=== PATIENT | female | born 1935 | race Two or more races ===

== ENCOUNTER 2020-11-17 12:29 | Inpatient (IN) | payer OTHER ==
[~2020-11-17] VITALS: Ht 147.3 cm; Wt 65.8 kg
[~2020-11-17 12:29] MED LIST: BENZ100C97 PO; CETI-41 PO; DOXY150C2 PO
[2020-11-17 13:58] LABS: Basophils # (auto) 0.1 10 ^3/uL (0-0.2); Basophils % (auto) 0.8 % (0.0-2.0); Eosinophils # (auto) 0.2 10 ^3/uL (0-0.8); Hematocrit 34.7 % (36.0-46.0); Hemoglobin 11.7 g/dL (12.2-16.2); Lymphocytes % (auto) 8.4 % (10.0-50.0); Mean Corpuscular Hemoglobin 30.8 pg (28.0-32.0); Mean Corpuscular Hgb Conc. 33.6 g/dL (32.0-36.0); Mean Corpuscular Volume 91.9 fL (80.0-100.0); Monocytes # (auto) 0.6 10 ^3/uL (0-1.3); Monocytes % (auto) 5.2 % (0.0-12.0); Neutrophils % (auto) 83.6 % (37.0-80.0); Platelet Count (auto) 230 10^3/uL (140-450); Red Blood Cells 3.78 10^6/uL (4.0-5.20); Red Cell Distribution Width 14.6 % (11.8-14.3); White Blood Cell 11.9 10^3/uL (4.4-10.8)
[2020-11-17 14:20] LABS: Calcium 8.4 mg/dL (8.5-10.1); INR 1.02 (0.9-1.15); Partial Thromboplastin Time 25.4 sec (23.0-31.2); Potassium 3.9 mmol/L (3.5-5.1)
[2020-11-17 14:27] LABS: BUN/Creatinine Ratio 21.3; Bilirubin, Total 0.4 mg/dL (0.2-1.0); Total Protein 6.9 g/dL (6.4-8.2)
[2020-11-17] MEDS ORDERED: ONDANSETRON HCL 4 MG/2 ML VIAL IV ONE (16:30)
[2020-11-17] MEDS ORDERED: MORPHINE SULFATE 4 MG/ML SYR/VIAL IV ONE (16:30)
[2020-11-17] MEDS ORDERED: NITROGLYCERIN 0.4 MG SL TAB SL PRN ×2 (17:30→23:45)
[2020-11-17] MEDS ORDERED: MORPHINE SULF INJ 2 MG/ML SYRINGE 1ML IV PRN ×3 (17:30→23:45)
[2020-11-17] MEDS ORDERED: ONDANSETRON HCL 4 MG/2 ML VIAL IV PRN ×2 (23:45)
[2020-11-17] MEDS ORDERED: DOCUSATE SOD 100 MG CAP PO PRN (23:45)
[2020-11-17] MEDS ORDERED: LORazepam 0.5 MG TAB PO PRN (23:45)
[2020-11-17] MEDS ORDERED: ALUM & MAG HYDROX-SIMETH LIQ(MAALOX) 30 ML PO PRN (23:45)
[2020-11-17] MEDS ORDERED: ALUM & MAG HYDROX-SIMETH LIQ(MAALOX) 30 ML PO ONE (23:45)
[2020-11-18] MEDS: DOXYCYCLINE 100MG/250ML 250 ML IV SCH ×3 (00:09→23:45)
[2020-11-18] MEDS: SODIUM CHLORIDE 0.9% 1,000 ML IV SCH ×2 (00:14→13:29)
[2020-11-18] MEDS: HYDROcodone-ACET 5/325MG TAB PO PRN ×3 (03:16→10:54)
[2020-11-18 04:29] VITALS: BP 119/71
[2020-11-18 08:00] VITALS: BP 153/63
[2020-11-18 08:22] LABS: Basophils # (auto) 0.1 10 ^3/uL (0-0.2); Basophils % (auto) 0.5 % (0.0-2.0); Eosinophils # (auto) 0 10 ^3/uL (0-0.8); Eosinophils % (auto) 0.1 % (0.0-7.0); Hematocrit 27.8 % (36.0-46.0); Hemoglobin 9.5 g/dL (12.2-16.2); Lymphocytes # (auto) 1.5 10 ^3/uL (0.4-5.4); Lymphocytes % (auto) 12.4 % (10.0-50.0); Mean Corpuscular Hemoglobin 31.5 pg (28.0-32.0); Mean Corpuscular Volume 92.7 fL (80.0-100.0); Monocytes % (auto) 8.5 % (0.0-12.0); Neutrophils # (auto) 9.4 10 ^3/uL (1.6-8.6); Neutrophils % (auto) 78.5 % (37.0-80.0); Platelet Count (auto) 188 10^3/uL (140-450); Red Cell Distribution Width 14.8 % (11.8-14.3)
[2020-11-18 08:30] LABS: Potassium 3.7 mmol/L (3.5-5.1)
[2020-11-18 08:35] LABS: Albumin 2.7 g/dL (3.4-5.0); BUN/Creatinine Ratio 21.7; Bilirubin, Total 0.5 mg/dL (0.2-1.0); Calcium 7.7 mg/dL (8.5-10.1); Magnesium 2.3 mg/dL (1.6-2.6); Phosphorus 4.2 mg/dL (2.5-4.90); Total Protein 6.2 g/dL (6.4-8.2)
[2020-11-18] MEDS: DOCUSATE SOD 100 MG CAP PO SCH (10:54)
[2020-11-18] MEDS: ASPirin-EC 81 mg tab PO SCH (10:54)
[2020-11-18] MEDS: CARVEDILOL 3.125 MG TAB PO SCH ×2 (10:55→21:45)
[2020-11-18 11:58] LABS: INR 1.03 (0.9-1.15); Partial Thromboplastin Time 25.3 sec (23.0-31.2)
[2020-11-18] MEDS ORDERED: LATA0.0020 EACHEYE (14:29)
[2020-11-18] MEDS ORDERED: ATOR20TA50 PO (14:29)
[2020-11-18] MEDS ORDERED: IPRA0.03 (14:29)
[2020-11-18] MEDS ORDERED: BRIM0.159 OP (14:29)
[2020-11-18] MEDS ORDERED: ASPI-498 OR (14:29)
[2020-11-18 16:00] VITALS: BP 110/88
[2020-11-18] MEDS ORDERED: ENOXAPARIN SOD 30 MG/0.3 ML SYRINGE SC ONE (16:15)
[2020-11-18] MEDS: ATORVASTATIN 20 MG TAB PO SCH (22:00)
[2020-11-19] VITALS: BP 111/45
[2020-11-19] MEDS: SODIUM CHLORIDE 0.9% 1,000 ML IV SCH (02:25)
[2020-11-19 08:00] VITALS: BP 115/76
[2020-11-19] MEDS: DOCUSATE SOD 100 MG CAP PO SCH (10:31)
[2020-11-19] MEDS: CARVEDILOL 3.125 MG TAB PO SCH ×2 (10:32→21:52)
[2020-11-19] MEDS: ASPirin-EC 81 mg tab PO SCH (10:32)
[2020-11-19] MEDS: DOXYCYCLINE 100MG/250ML 250 ML IV SCH ×2 (12:20→23:33)
[2020-11-19] MEDS: HYDROcodone-ACET 5/325MG TAB PO PRN ×3 (12:27→23:57)
[2020-11-19] MEDS ORDERED: ENOXAPARIN SOD 30 MG/0.3 ML SYRINGE SC ONE (12:30)
[2020-11-19 16:00] VITALS: BP 126/63
[2020-11-19] MEDS: ATORVASTATIN 20 MG TAB PO SCH (21:52)
[2020-11-20] VITALS: BP 107/53
[2020-11-20] MEDS ORDERED: BUPIVACAINE 0.25% INJ 50ML VIAL ONE (07:28)
[2020-11-20] MEDS ORDERED: TETRACAINE 1% INJ 2 ML VIAL IJ ONE (07:28)
[2020-11-20] MEDS ORDERED: VANCOMYCIN HCL 1000 MG VL ONE (07:33)
[2020-11-20] MEDS ORDERED: fentaNYL CITRATE 100 MCG/2 ML VL ONE (07:40)
[2020-11-20] MEDS ORDERED: MIDAZOLAM HCL 1MG/1ML-2 ML VIAL ONE ×2 (07:41→08:25)
[2020-11-20 07:43] LABS: Basophils # (auto) 0 10 ^3/uL (0-0.2); Basophils % (auto) 0.3 % (0.0-2.0); Eosinophils # (auto) 0.1 10 ^3/uL (0-0.8); Red Blood Cells 2.39 10^6/uL (4.0-5.20); Red Cell Distribution Width 14.4 % (11.8-14.3)
[2020-11-20 07:47] LABS: Eosinophils % (auto) 0.7 % (0.0-7.0); Hematocrit 22.1 % (36.0-46.0); Hemoglobin 7.6 g/dL (12.2-16.2); Lymphocytes # (auto) 1.1 10 ^3/uL (0.4-5.4); Lymphocytes % (auto) 11.1 % (10.0-50.0); Mean Corpuscular Hemoglobin 31.8 pg (28.0-32.0); Mean Corpuscular Hgb Conc. 34.5 g/dL (32.0-36.0); Mean Corpuscular Volume 92.3 fL (80.0-100.0); Monocytes # (auto) 1.1 10 ^3/uL (0-1.3); Neutrophils # (auto) 7.8 10 ^3/uL (1.6-8.6); Neutrophils % (auto) 76.9 % (37.0-80.0); Platelet Count (auto) 162 10^3/uL (140-450); White Blood Cell 10.2 10^3/uL (4.4-10.8)
[2020-11-20 08:00] VITALS: BP 123/57
[2020-11-20 08:20] LABS: Calcium 8.1 mg/dL (8.5-10.1); Potassium 3.8 mmol/L (3.5-5.1)
[2020-11-20] MEDS ORDERED: PROPOFOL 10 MG/ML 20 ML IV ONE (08:24)
[2020-11-20] MEDS ORDERED: DexAMETHasone SOD PHOS 10MG/1ML VIAL INJ ONE (08:24)
[2020-11-20] MEDS ORDERED: PHENYLEPHRINE HCL 10 MG/ML VL ONE (09:17)
[2020-11-20] MEDS: LACTATED RINGER'S 1,000 ML IV SCH ×2 (09:45→20:44)
[2020-11-20] MEDS: ASPirin-EC 81 mg tab PO SCH (10:00)
[2020-11-20] MEDS: DOCUSATE SOD 100 MG CAP PO SCH (10:00)
[2020-11-20] MEDS: CARVEDILOL 3.125 MG TAB PO SCH ×2 (10:00→22:13)
[2020-11-20] MEDS ORDERED: LABETALOL HCL 5 MG/ML 4ML SYRINGE IV PRN (10:15)
[2020-11-20] MEDS ORDERED: ONDANSETRON HCL 4 MG/2 ML VIAL IV PRN (10:15)
[2020-11-20] MEDS ORDERED: ePHEDrine SULFATE 50 MG/ML AMP IV PRN (10:15)
[2020-11-20] MEDS ORDERED: MIDAZOLAM HCL 1MG/1ML-2 ML VIAL IV PRN (10:15)
[2020-11-20] MEDS ORDERED: fentaNYL CITRATE 100 MCG/2 ML VL IV PRN (10:15)
[2020-11-20] MEDS ORDERED: ACETAMINOPHEN 500 MG TAB PO ONE (11:00)
[2020-11-20] MEDS ORDERED: diphenhdrAMINE HCL 25 MG CAP PO ONE (11:00)
[2020-11-20] MEDS: ENOXAPARIN SOD 40 MG/0.4 ML SYRINGE SC SCH (11:26)
[2020-11-20] MEDS: DOXYCYCLINE 100MG/250ML 250 ML IV SCH (11:26)
[2020-11-20 12:34] LABS: INR 1.03 (0.9-1.15)
[2020-11-20] MEDS: HYDROcodone-ACET 5/325MG TAB PO PRN (13:45)
[2020-11-20] MEDS: SODIUM CHLOR 0.9% PF (SALINE LOCK) 10ML VIAL/SYR IV SCH ×2 (14:00→22:11)
[2020-11-20] MEDS: HYDROmorphone HCL 2 MG/ML VL IV PRN ×3 (15:34→20:34)
[2020-11-20 16:00] VITALS: BP 105/51
[2020-11-20 16:16] VITALS: BP 105/51
[2020-11-20 16:31] VITALS: BP 113/48
[2020-11-20 18:26] VITALS: BP 143/52
[2020-11-20] MEDS: ATORVASTATIN 20 MG TAB PO SCH (22:12)
[2020-11-21] VITALS: BP 114/57
[2020-11-21] MEDS: DOXYCYCLINE 100MG/250ML 250 ML IV SCH ×3 (00:02→23:28)
[2020-11-21] MEDS: HYDROmorphone HCL 2 MG/ML VL IV PRN ×3 (04:12→11:33)
[2020-11-21] MEDS: LACTATED RINGER'S 1,000 ML IV SCH ×3 (05:45→23:29)
[2020-11-21 06:06] LABS: Basophils # (auto) 0 10 ^3/uL (0-0.2); Basophils % (auto) 0.3 % (0.0-2.0); Eosinophils # (auto) 0 10 ^3/uL (0-0.8); Hematocrit 25.3 % (36.0-46.0); Hemoglobin 8.6 g/dL (12.2-16.2); Lymphocytes # (auto) 0.7 10 ^3/uL (0.4-5.4); Lymphocytes % (auto) 7.4 % (10.0-50.0); Mean Corpuscular Hemoglobin 30.3 pg (28.0-32.0); Mean Corpuscular Volume 89.1 fL (80.0-100.0); Monocytes % (auto) 10.6 % (0.0-12.0); Neutrophils # (auto) 7.6 10 ^3/uL (1.6-8.6); Neutrophils % (auto) 81.7 % (37.0-80.0); Platelet Count (auto) 168 10^3/uL (140-450); Red Blood Cells 2.84 10^6/uL (4.0-5.20); Red Cell Distribution Width 16.1 % (11.8-14.3); White Blood Cell 9.4 10^3/uL (4.4-10.8)
[2020-11-21] MEDS: SODIUM CHLOR 0.9% PF (SALINE LOCK) 10ML VIAL/SYR IV SCH ×3 (06:10→21:04)
[2020-11-21 06:22] LABS: Calcium 7.6 mg/dL (8.5-10.1); INR 1.06 (0.9-1.15); Magnesium 2.2 mg/dL (1.6-2.6); Partial Thromboplastin Time 30.9 sec (23.0-31.2); Potassium 3.6 mmol/L (3.5-5.1)
[2020-11-21 06:28] LABS: BUN/Creatinine Ratio 20.9; Bilirubin, Total 1.4 mg/dL (0.2-1.0); Total Protein 5.3 g/dL (6.4-8.2)
[2020-11-21 08:00] VITALS: BP 126/61
[2020-11-21] MEDS: DOCUSATE SOD 100 MG CAP PO SCH (09:15)
[2020-11-21] MEDS: ASPirin-EC 81 mg tab PO SCH (09:16)
[2020-11-21 09:17] VITALS: BP 126/61
[2020-11-21] MEDS: CARVEDILOL 3.125 MG TAB PO SCH ×2 (09:17→21:05)
[2020-11-21] MEDS: ENOXAPARIN SOD 40 MG/0.4 ML SYRINGE SC SCH (10:00)
[2020-11-21] MEDS ORDERED: NEUTRA-PHOS TABLET PO ONE (14:45)
[2020-11-21 16:00] VITALS: BP 142/88
[2020-11-21] MEDS: NEUTRA-PHOS TABLET PO SCH (18:29)
[2020-11-21] MEDS: ATORVASTATIN 20 MG TAB PO SCH (21:05)
[2020-11-21] MEDS: HYDROcodone-ACET 5/325MG TAB PO PRN (21:05)
[2020-11-22] VITALS (13 sets, daily range): BP systolic 88–144; BP diastolic 40–74
[2020-11-22] MEDS: SODIUM CHLOR 0.9% PF (SALINE LOCK) 10ML VIAL/SYR IV SCH ×3 (05:03→21:20)
[2020-11-22 05:20] LABS: Basophils # (auto) 0 10 ^3/uL (0-0.2); Basophils % (auto) 0.4 % (0.0-2.0); Eosinophils # (auto) 0.1 10 ^3/uL (0-0.8); Eosinophils % (auto) 1.2 % (0.0-7.0); Hematocrit 21.8 % (36.0-46.0); Hemoglobin 7.6 g/dL (12.2-16.2); Lymphocytes # (auto) 0.7 10 ^3/uL (0.4-5.4); Lymphocytes % (auto) 10.2 % (10.0-50.0); Mean Corpuscular Hemoglobin 30.9 pg (28.0-32.0); Mean Corpuscular Hgb Conc. 35.1 g/dL (32.0-36.0); Mean Corpuscular Volume 88.1 fL (80.0-100.0); Monocytes # (auto) 0.8 10 ^3/uL (0-1.3); Monocytes % (auto) 11.4 % (0.0-12.0); Neutrophils # (auto) 5.2 10 ^3/uL (1.6-8.6); Neutrophils % (auto) 76.8 % (37.0-80.0); Nucleated Red Blood Cells % 0.1 %; Platelet Count (auto) 150 10^3/uL (140-450); Red Blood Cells 2.48 10^6/uL (4.0-5.20); Red Cell Distribution Width 16.5 % (11.8-14.3); White Blood Cell 6.8 10^3/uL (4.4-10.8)
[2020-11-22 05:37] LABS: INR 1.01 (0.9-1.15); Partial Thromboplastin Time 26.7 sec (23.0-31.2)
[2020-11-22 05:41] LABS: Potassium 3.2 mmol/L (3.5-5.1)
[2020-11-22 05:48] LABS: Albumin 1.7 g/dL (3.4-5.0); Bilirubin, Total 0.9 mg/dL (0.2-1.0); Calcium 7.1 mg/dL (8.5-10.1); Phosphorus 2.6 mg/dL (2.5-4.90); Total Protein 5.2 g/dL (6.4-8.2)
[2020-11-22] MEDS ORDERED: POTASSIUM CHL 20 Meq TABLET PO ONE (06:30)
[2020-11-22] MEDS ORDERED: BUPIVACAINE 0.25% INJ 50ML VIAL ONE (07:04)
[2020-11-22] MEDS ORDERED: fentaNYL CITRATE 100 MCG/2 ML VL ONE (07:19)
[2020-11-22] MEDS ORDERED: MEPERIDINE HCL (25 MG/ML) 1ML VIAL ONE (07:19)
[2020-11-22] MEDS ORDERED: GLYCOPYRROLATE 0.2 MG/ML 1ML VIAL ONE (07:21)
[2020-11-22] MEDS ORDERED: ePHEDrine SULFATE 50 MG/ML AMP ONE (07:21)
[2020-11-22] MEDS ORDERED: DexAMETHasone SOD PHOS 10MG/1ML VIAL INJ ONE (07:21)
[2020-11-22] MEDS ORDERED: ONDANSETRON HCL 4 MG/2 ML VIAL ONE (07:21)
[2020-11-22] MEDS ORDERED: ETOMIDATE (2MG/ML) 20ML VIAL IV ONE (07:21)
[2020-11-22] MEDS ORDERED: PROPOFOL 10 MG/ML 20 ML IV ONE (07:21)
[2020-11-22] MEDS ORDERED: PHENYLEPHRINE HCL 10 MG/ML VL ONE (07:21)
[2020-11-22] MEDS ORDERED: MIDAZOLAM HCL 1MG/1ML-2 ML VIAL ONE (07:21)
[2020-11-22] MEDS: NEUTRA-PHOS TABLET PO SCH ×3 (08:00→17:52)
[2020-11-22] MEDS ORDERED: CLINDAMYCIN 600MG IV 50 ML IV ONE (08:43)
[2020-11-22] MEDS ORDERED: HYDROmorphone HCL 2 MG/ML VL IV PRN (09:45)
[2020-11-22] MEDS ORDERED: ONDANSETRON HCL 4 MG/2 ML VIAL IV PRN (09:45)
[2020-11-22] MEDS: CARVEDILOL 3.125 MG TAB PO SCH ×2 (10:00→21:21)
[2020-11-22] MEDS: DOCUSATE SOD 100 MG CAP PO SCH (11:05)
[2020-11-22] MEDS: ASPirin-EC 81 mg tab PO SCH (11:05)
[2020-11-22] MEDS: LACTATED RINGER'S 1,000 ML IV SCH ×2 (11:05→21:20)
[2020-11-22] MEDS: DOXYCYCLINE 100MG/250ML 250 ML IV SCH (15:43)
[2020-11-22] MEDS: ASCORBIC ACID 500 MG TAB PO SCH (21:21)
[2020-11-22] MEDS: ATORVASTATIN 20 MG TAB PO SCH (21:21)
[2020-11-22] MEDS: HYDROcodone-ACET 5/325MG TAB PO PRN (21:21)
[2020-11-23] MEDS: DOXYCYCLINE 100MG/250ML 250 ML IV SCH ×2 (00:08→11:22)
[2020-11-23 00:15] VITALS: BP 119/62
[2020-11-23] MEDS: SODIUM CHLOR 0.9% PF (SALINE LOCK) 10ML VIAL/SYR IV SCH ×3 (06:18→21:55)
[2020-11-23] MEDS: LACTATED RINGER'S 1,000 ML IV SCH ×2 (06:18→18:15)
[2020-11-23 08:00] VITALS: BP 104/62
[2020-11-23 08:01] LABS: Hematocrit 26.8 % (36.0-46.0); Hemoglobin 9.4 g/dL (12.2-16.2)
[2020-11-23] MEDS: DOCUSATE SOD 100 MG CAP PO SCH (10:07)
[2020-11-23] MEDS: CARVEDILOL 3.125 MG TAB PO SCH ×2 (10:08→21:59)
[2020-11-23] MEDS: ASPirin-EC 81 mg tab PO SCH (10:08)
[2020-11-23] MEDS: MULTIPLE VITAMIN TAB PO SCH (10:09)
[2020-11-23] MEDS: ASCORBIC ACID 500 MG TAB PO SCH ×2 (10:10→22:00)
[2020-11-23] MEDS: HYDROcodone-ACET 5/325MG TAB PO PRN ×3 (10:11→22:01)
[2020-11-23] MEDS: NEUTRA-PHOS TABLET PO SCH ×3 (11:21→18:45)
[2020-11-23] MEDS ORDERED: POTASSIUM CHL 20 Meq TABLET PO ONE (12:30)
[2020-11-23 15:53] VITALS: BP 118/63
[2020-11-23] MEDS: ATORVASTATIN 20 MG TAB PO SCH (22:00)
[2020-11-24] VITALS: BP_SYST 120; BP_SYST 128; BP_DIAS 58; BP_DIAS 70
[2020-11-24] MEDS: DOXYCYCLINE 100MG/250ML 250 ML IV SCH ×3 (00:13→23:47)
[2020-11-24] MEDS ORDERED: [UNRECOGNIZED DRUG - CODE] OP (00:58)
[2020-11-24] MEDS: LACTATED RINGER'S 1,000 ML IV SCH ×3 (03:45→23:45)
[2020-11-24] MEDS: SODIUM CHLOR 0.9% PF (SALINE LOCK) 10ML VIAL/SYR IV SCH ×3 (06:35→22:27)
[2020-11-24 07:58] VITALS: BP 113/52
[2020-11-24] MEDS: MULTIPLE VITAMIN TAB PO SCH (09:29)
[2020-11-24] MEDS: ASCORBIC ACID 500 MG TAB PO SCH ×2 (09:29→22:28)
[2020-11-24] MEDS: DOCUSATE SOD 100 MG CAP PO SCH (09:29)
[2020-11-24] MEDS: ASPirin-EC 81 mg tab PO SCH (09:29)
[2020-11-24] MEDS: NEUTRA-PHOS TABLET PO SCH ×3 (09:30→17:39)
[2020-11-24] MEDS: CARVEDILOL 3.125 MG TAB PO SCH ×2 (09:30→22:00)
[2020-11-24] MEDS: HYDROcodone-ACET 5/325MG TAB PO PRN (14:34)
[2020-11-24] MEDS: BRIMONIDINE 0.2% OPTH Soln 5ml EACHEYE SCH ×2 (14:35→22:26)
[2020-11-24 15:54] VITALS: BP 108/69
[2020-11-24] MEDS: TIMOLOL MAL 0.5% OPTH(EYE) SOL 5ML EACHEYE SCH (22:27)
[2020-11-24] MEDS: LATANOPROST 0.005 % OPTH(EYE) SOL 2.5ML EACHEYE SCH (22:27)
[2020-11-24] MEDS: ATORVASTATIN 20 MG TAB PO SCH (22:28)
[2020-11-25] VITALS: BP 126/64
[2020-11-25] MEDS: SODIUM CHLOR 0.9% PF (SALINE LOCK) 10ML VIAL/SYR IV SCH ×3 (05:00→21:52)
[2020-11-25] MEDS: BRIMONIDINE 0.2% OPTH Soln 5ml EACHEYE SCH ×3 (05:00→21:51)
[2020-11-25] MEDS: HYDROcodone-ACET 5/325MG TAB PO PRN ×2 (05:01→15:14)
[2020-11-25] MEDS: NEUTRA-PHOS TABLET PO SCH ×3 (07:59→17:50)
[2020-11-25 08:00] VITALS: BP 100/57
[2020-11-25] MEDS: CARVEDILOL 3.125 MG TAB PO SCH ×2 (10:00→21:52)
[2020-11-25] MEDS: TIMOLOL MAL 0.5% OPTH(EYE) SOL 5ML EACHEYE SCH ×2 (11:24→21:51)
[2020-11-25] MEDS: ASPirin-EC 81 mg tab PO SCH (11:24)
[2020-11-25] MEDS: DOCUSATE SOD 100 MG CAP PO SCH (11:24)
[2020-11-25] MEDS: MULTIPLE VITAMIN TAB PO SCH (11:25)
[2020-11-25] MEDS: ASCORBIC ACID 500 MG TAB PO SCH ×2 (11:25→21:52)
[2020-11-25] MEDS: DOXYCYCLINE 100MG/250ML 250 ML IV SCH ×2 (11:27→23:52)
[2020-11-25 16:00] VITALS: BP 111/44
[2020-11-25] MEDS: LATANOPROST 0.005 % OPTH(EYE) SOL 2.5ML EACHEYE SCH (21:51)
[2020-11-25] MEDS: ATORVASTATIN 20 MG TAB PO SCH (21:52)
[2020-11-26] VITALS: BP 98/48
[2020-11-26] MEDS: BRIMONIDINE 0.2% OPTH Soln 5ml EACHEYE SCH ×3 (05:53→21:55)
[2020-11-26] MEDS: SODIUM CHLOR 0.9% PF (SALINE LOCK) 10ML VIAL/SYR IV SCH ×3 (05:53→21:55)
[2020-11-26 06:25] LABS: Basophils # (auto) 0 10 ^3/uL (0-0.2); Basophils % (auto) 0.4 % (0.0-2.0); Eosinophils # (auto) 0.5 10 ^3/uL (0-0.8); Eosinophils % (auto) 5.6 % (0.0-7.0); Hematocrit 30.7 % (36.0-46.0); Hemoglobin 10.3 g/dL (12.2-16.2); Lymphocytes # (auto) 1.3 10 ^3/uL (0.4-5.4); Lymphocytes % (auto) 16.2 % (10.0-50.0); Mean Corpuscular Hemoglobin 29.9 pg (28.0-32.0); Mean Corpuscular Hgb Conc. 33.6 g/dL (32.0-36.0); Mean Corpuscular Volume 88.9 fL (80.0-100.0); Monocytes # (auto) 0.8 10 ^3/uL (0-1.3); Neutrophils # (auto) 5.6 10 ^3/uL (1.6-8.6); Neutrophils % (auto) 67.8 % (37.0-80.0); Nucleated Red Blood Cells % 0.2 %; Platelet Count (auto) 242 10^3/uL (140-450); Red Blood Cells 3.45 10^6/uL (4.0-5.20); Red Cell Distribution Width 15.8 % (11.8-14.3); White Blood Cell 8.3 10^3/uL (4.4-10.8)
[2020-11-26 06:41] LABS: Albumin 1.9 g/dL (3.4-5.0); Magnesium 2.1 mg/dL (1.6-2.6); Potassium 4.1 mmol/L (3.5-5.1)
[2020-11-26 06:44] LABS: BUN/Creatinine Ratio 23.1; Bilirubin, Total 1.2 mg/dL (0.2-1.0); Phosphorus 4.4 mg/dL (2.5-4.90); Total Protein 5.1 g/dL (6.4-8.2)
[2020-11-26 06:56] LABS: INR 1.07 (0.9-1.15); Partial Thromboplastin Time 25.7 sec (23.0-31.2)
[2020-11-26 08:06] VITALS: BP 109/51
[2020-11-26] MEDS: NEUTRA-PHOS TABLET PO SCH ×3 (08:10→18:02)
[2020-11-26] MEDS: CARVEDILOL 3.125 MG TAB PO SCH ×2 (10:00→21:56)
[2020-11-26] MEDS: TIMOLOL MAL 0.5% OPTH(EYE) SOL 5ML EACHEYE SCH ×2 (11:34→21:55)
[2020-11-26] MEDS: DOCUSATE SOD 100 MG CAP PO SCH (11:34)
[2020-11-26] MEDS: ASCORBIC ACID 500 MG TAB PO SCH ×2 (11:34→21:57)
[2020-11-26] MEDS: MULTIPLE VITAMIN TAB PO SCH (11:34)
[2020-11-26] MEDS: ASPirin-EC 81 mg tab PO SCH (11:34)
[2020-11-26] MEDS: DOXYCYCLINE 100MG/250ML 250 ML IV SCH (11:35)
[2020-11-26] MEDS: HYDROcodone-ACET 5/325MG TAB PO PRN (12:06)
[2020-11-26 15:52] VITALS: BP 90/46
[2020-11-26] MEDS: LATANOPROST 0.005 % OPTH(EYE) SOL 2.5ML EACHEYE SCH (21:55)
[2020-11-26] MEDS: ATORVASTATIN 20 MG TAB PO SCH (21:56)
[2020-11-27] VITALS: BP 119/65
[2020-11-27] MEDS: DOXYCYCLINE 100MG/250ML 250 ML IV SCH ×2 (00:03→11:45)
[2020-11-27] MEDS: BRIMONIDINE 0.2% OPTH Soln 5ml EACHEYE SCH (05:38)
[2020-11-27] MEDS: SODIUM CHLOR 0.9% PF (SALINE LOCK) 10ML VIAL/SYR IV SCH (05:38)
[2020-11-27 08:00] VITALS: BP 119/49
[2020-11-27] MEDS: NEUTRA-PHOS TABLET PO SCH ×2 (08:16→13:11)
[2020-11-27] MEDS: DOCUSATE SOD 100 MG CAP PO SCH (10:14)
[2020-11-27] MEDS: TIMOLOL MAL 0.5% OPTH(EYE) SOL 5ML EACHEYE SCH (10:14)
[2020-11-27] MEDS: ASCORBIC ACID 500 MG TAB PO SCH (10:15)
[2020-11-27] MEDS: ASPirin-EC 81 mg tab PO SCH (10:15)
[2020-11-27] MEDS: MULTIPLE VITAMIN TAB PO SCH (10:15)
[2020-11-27] MEDS: CARVEDILOL 3.125 MG TAB PO SCH (10:15)
[2020-11-27] MEDS: HYDROcodone-ACET 5/325MG TAB PO PRN (13:12)
== END 2020-11-27 15:45 | disposition home health service (06) | DRG 480 ==
LOC: EDBD 12:29 → EDUNIT# 12:29 → ER 12:29 → TELE 12:30 → TELE-WESTW 11-18 04:30
PROVIDERS: ADMIT Hospitalist; ATTEND Family Medicine
PROC: 0QS636Z Reposition Right Upper Femur with Intramedullary Internal Fixation Device, Percutaneous Approach (ICD-10-PCS; 2020-11-20)
PROC: 30233N1 Transfusion of Nonautologous Red Blood Cells into Peripheral Vein, Percutaneous Approach (ICD-10-PCS; 2020-11-20)
PROC: 0RSNXZZ Reposition Right Wrist Joint, External Approach (ICD-10-PCS; 2020-11-20)
PROC: 0PSH04Z Reposition Right Radius with Internal Fixation Device, Open Approach (ICD-10-PCS; principal; 2020-11-22 08:00)
DX: S72.141A Displaced intertrochanteric fracture of right femur, initial encounter for closed fracture (principal); U07.1 COVID-19; I21.A1 Myocardial infarction type 2; S52.571A Other intraarticular fracture of lower end of right radius, initial encounter for closed fracture; S52.613A Displaced fracture of unspecified ulna styloid process, initial encounter for closed fracture; E44.0 Moderate protein-calorie malnutrition; N39.0 Urinary tract infection, site not specified; M81.0 Age-related osteoporosis without current pathological fracture; R01.1 Cardiac murmur, unspecified; I10 Essential (primary) hypertension; M19.90 Unspecified osteoarthritis, unspecified site; E78.5 Hyperlipidemia, unspecified; E78.00 Pure hypercholesterolemia, unspecified; Z88.0 Allergy status to penicillin; W18.39XA Other fall on same level, initial encounter; Y93.01 Activity, walking, marching and hiking; M85.80 Other specified disorders of bone density and structure, unspecified site; D64.9 Anemia, unspecified; Z88.8 Allergy status to other drugs, medicaments and biological substances; Y92.481 Parking lot as the place of occurrence of the external cause; Z82.49 Family history of ischemic heart disease and other diseases of the circulatory system; Y99.8 Other external cause status; Z83.3 Family history of diabetes mellitus; Z87.891 Personal history of nicotine dependence; Z90.710 Acquired absence of both cervix and uterus; Z95.3 Presence of xenogenic heart valve; Z98.42 Cataract extraction status, left eye; Z88.2 Allergy status to sulfonamides; Z68.29 Body mass index [BMI] 29.0-29.9, adult
CPT/HCPCS: 36415; 71045; 73100; 73120; 73502; 76000; 80048; 80053; 83036; 83735; 84100; 84484; 85014; 85018; 85025; 85610; 85730; 86850; 86900; 86901; 86920; 87040; 87426; 93005; 93306; 96374; 96375; 97110; 97116; 97163; 97530; A4565; C1713; C1769; G0378; J1100; J2250; J2405; J2704; J3490; J7060